=== PATIENT | female | born 1940 | race Caucasian/White ===

== ENCOUNTER 2016-08-05 09:14 | Emergency (ER) | payer OTHER ==
[~2016-08-05] VITALS: Ht 165.1 cm; Wt 60.2 kg
[2016-08-05 09:16] VITALS: BP 134/68
[2016-08-05] MEDS ORDERED: KETOROLAC 30 MG/1 ML ONE (09:53)
[2016-08-05 09:54] LABS: HEMOGLOBIN 13.9 g/dL (11.7-16.4)
[2016-08-05] MEDS ORDERED: SODIUM CHLORIDE FLUSH 10ML SYR IVF ONE (10:00)
[2016-08-05] MEDS ORDERED: KETOROLAC 30 MG/1 ML IVPush ONE (10:00)
[2016-08-05 10:02] LABS: BLOOD UREA NITROGEN 19 mg/dL (7-18)
== END 2016-08-05 11:40 | disposition home or self-care (01) ==
LOC: ED 09:38
DX: G50.0 Trigeminal neuralgia (principal); H92.01 Otalgia, right ear; E03.9 Hypothyroidism, unspecified
CPT/HCPCS: 36415; 70450; 80048; 82040; 85025; 85651; 96374; 99285; J1885